=== PATIENT | male | born 1995 | race American Indian/Alaskan Native ===

== ENCOUNTER 2019-04-15 13:21 | Outpatient (CLI) | payer OTHER ==
[2019-04-15] MEDS ORDERED: LIDOCAINE (4%) 40 MG/ML TOPICAL SOLN 50 ML BOTTLE TP ONE (14:00)
== END 2019-04-15 13:22 | disposition home or self-care (01) ==
LOC: WOUND 13:21
PROVIDERS: ATTEND Surgery
DX: T81.89XA Other complications of procedures, not elsewhere classified, initial encounter (principal); L05.91 Pilonidal cyst without abscess; F17.200 Nicotine dependence, unspecified, uncomplicated; Y83.8 Other surgical procedures as the cause of abnormal reaction of the patient, or of later complication, without mention of misadventure at the time of the procedure; Y92.89 Other specified places as the place of occurrence of the external cause
CPT/HCPCS: 11042; G0463; 99205; 99215

== ENCOUNTER 2019-04-22 13:01 | Outpatient (CLI) | payer OTHER ==
[2019-04-22] MEDS ORDERED: SILVER NITRATE APPLICATOR 1 EA TP ONE (13:14)
[2019-04-22] MEDS ORDERED: LIDOCAINE 1%/EPINEPHRINE 1:100,000 VIAL (20 ML) INFILTRATI NR (14:00)
== END 2019-04-22 13:02 | disposition home or self-care (01) ==
LOC: WOUND 13:01
PROVIDERS: ATTEND Surgery
DX: T81.89XD Other complications of procedures, not elsewhere classified, subsequent encounter (principal); L05.91 Pilonidal cyst without abscess; F17.200 Nicotine dependence, unspecified, uncomplicated; Y83.8 Other surgical procedures as the cause of abnormal reaction of the patient, or of later complication, without mention of misadventure at the time of the procedure
CPT/HCPCS: 10060

== ENCOUNTER 2019-04-29 12:57 | Outpatient (CLI) | payer OTHER ==
[2019-04-29] MEDS ORDERED: LIDOCAINE (4%) 40 MG/ML TOPICAL SOLN 50 ML BOTTLE TP ONE (14:00)
== END 2019-04-29 12:58 | disposition home or self-care (01) ==
LOC: WOUND 12:57
PROVIDERS: ATTEND Surgery
DX: T81.89XD Other complications of procedures, not elsewhere classified, subsequent encounter (principal); F17.200 Nicotine dependence, unspecified, uncomplicated; Y83.8 Other surgical procedures as the cause of abnormal reaction of the patient, or of later complication, without mention of misadventure at the time of the procedure

== ENCOUNTER 2019-05-06 12:50 | Outpatient (CLI) | payer OTHER ==
[2019-05-06] MEDS ORDERED: LIDOCAINE (4%) 40 MG/ML TOPICAL SOLN 50 ML BOTTLE TP ONE (13:02)
== END 2019-05-06 12:51 | disposition home or self-care (01) ==
LOC: WOUND 12:50
PROVIDERS: ATTEND Surgery
DX: T81.89XD Other complications of procedures, not elsewhere classified, subsequent encounter (principal); F17.200 Nicotine dependence, unspecified, uncomplicated; Y83.8 Other surgical procedures as the cause of abnormal reaction of the patient, or of later complication, without mention of misadventure at the time of the procedure

== ENCOUNTER 2019-05-13 14:08 | Outpatient (CLI) | payer OTHER ==
[2019-05-13] MEDS ORDERED: LIDOCAINE 1%/EPINEPHRINE 1:100,000 VIAL (20 ML) INFILTRATI ONE (14:11)
[2019-05-13] MEDS ORDERED: SILVER NITRATE APPLICATOR 1 EA TP ONE (14:12)
== END 2019-05-13 14:09 | disposition home or self-care (01) ==
LOC: WOUND 14:08
PROVIDERS: ATTEND Surgery
DX: T81.89XD Other complications of procedures, not elsewhere classified, subsequent encounter (principal); F17.200 Nicotine dependence, unspecified, uncomplicated; Y83.8 Other surgical procedures as the cause of abnormal reaction of the patient, or of later complication, without mention of misadventure at the time of the procedure
CPT/HCPCS: 10060

== ENCOUNTER 2019-05-27 12:59 | Outpatient (CLI) | payer OTHER ==
[2019-05-27] MEDS ORDERED: LIDOCAINE (4%) 40 MG/ML TOPICAL SOLN 50 ML BOTTLE TP ONE (13:15)
== END 2019-05-27 13:00 | disposition home or self-care (01) ==
LOC: WOUND 12:59
PROVIDERS: ATTEND Surgery
DX: T81.89XD Other complications of procedures, not elsewhere classified, subsequent encounter (principal); F17.200 Nicotine dependence, unspecified, uncomplicated; Y83.8 Other surgical procedures as the cause of abnormal reaction of the patient, or of later complication, without mention of misadventure at the time of the procedure

== ENCOUNTER 2019-06-10 13:08 | Outpatient (CLI) | payer OTHER ==
[2019-06-10] MEDS ORDERED: LIDOCAINE (4%) 40 MG/ML TOPICAL SOLN 50 ML BOTTLE TP ONE (13:32)
== END 2019-06-10 13:09 | disposition home or self-care (01) ==
LOC: WOUND 13:08
PROVIDERS: ATTEND Surgery
DX: T81.89XD Other complications of procedures, not elsewhere classified, subsequent encounter (principal); F17.200 Nicotine dependence, unspecified, uncomplicated; Y83.8 Other surgical procedures as the cause of abnormal reaction of the patient, or of later complication, without mention of misadventure at the time of the procedure

== ENCOUNTER 2019-07-08 14:00 | Outpatient (CLI) | payer OTHER ==
[2019-07-08] MEDS ORDERED: LIDOCAINE (4%) 40 MG/ML TOPICAL SOLN 50 ML BOTTLE TP ONE (14:04)
== END 2019-07-08 14:01 | disposition home or self-care (01) ==
LOC: WOUND 14:00
PROVIDERS: ATTEND Surgery
DX: T81.89XD Other complications of procedures, not elsewhere classified, subsequent encounter (principal); F17.200 Nicotine dependence, unspecified, uncomplicated; Y83.8 Other surgical procedures as the cause of abnormal reaction of the patient, or of later complication, without mention of misadventure at the time of the procedure
CPT/HCPCS: 99213; G0463